=== PATIENT | female | born 1980 | race Caucasian/White ===

== ENCOUNTER 2019-03-13 07:22 | Emergency (ER) | payer SELFPAY ==
[2019-03-13 07:48] LABS: Bilirubin Negative (Negative); Blood, Urine Trace (Negative); Clarity Clear (Clear); Glucose, Urine (Dipstick) Negative (Negative); Leukocyte Small (Negative); Nitrite Negative (Negative); Protein, Urine (Dipstick) 100 mg/dL (Neg-Trace); Urobilinogen 0.2 mg/dL (Less than 2)
[2019-03-13 07:51] LABS: Bacteria/HPF 1+ HPF (None Seen); Squamous Epithelial 0-3 HPF (0-3); Yeast-Budding Rare HPF (None Seen)
[2019-03-13] MEDS ORDERED: Ketorolac Tromethamine 30 MG/ML VIAL ONE (08:08)
[2019-03-13 08:20] LABS: Pregnancy Test - Urine (BHCG) Negative (Negative); Pregu Control Background? CLEAR/WHITE (CLR/WHITE); Pregu Control Bar Appear? YES (CONTROL BAR)
[2019-03-13 08:20] LABS: #Lymphocytes 0.8 thou/uL (1.20-3.40); #Monocytes 0.4 thou/uL (0.11-0.59); #Neutrophils 7.4 thou/uL (1.40-6.50); %Basophils 0.4 % (0.0-1.0); %Eosinophils 0.2 % (0.0-10.0); %Lymphocytes 9.7 % (21.0-51.0); %Monocytes 4.1 % (0.0-10.0); %Neutrophils 85.6 % (42.0-75.0); Mean Corpuscular HGB CONC 31.6 g/dL (32.0-36.0); Mean Corpuscular Hemoglobin 27.1 pg (27.0-31.0); Mean Corpuscular Volume 85.8 fL (78.0-98.0); Mean Platelet Volume 6.3 fL (7.4-10.4); Platelet Count 320 thou/uL (130-400); RBC Distribution Width 13.2 % (11.5-14.5); Red Blood Cell (RBC) Count 4.06 mill/uL (4.20-5.40); White Blood Cell (WBC) Count 8.7 thou/uL (4.8-10.8)
[2019-03-13 08:34] LABS: ALT (SGPT) 90 U/L (8-55); AST (SGOT) 65 U/L (5-34); Albumin 3.9 g/dL (3.5-5.0); Alkaline Phosphatase 190 U/L (40-150); Anion Gap 16 mmol/L (10-20); BUN (Urea Nitrogen) 5 mg/dL (7.0-18.7); Bilirubin, Total 0.4 mg/dL (0.2-1.2); Calc. Creatinine Clearance 0 mL/min (70-130); Calcium 9.4 mg/dL (7.8-10.44); Carbon Dioxide 19 mmol/L (22-29); Chloride 103 mmol/L (98-107); Estimated GFR-MDRD 78; Globulin 5.1 g/dL (2.4-3.5); Glucose 118 mg/dL (70-105); Sodium 135 mmol/L (136-145)
[2019-03-13 08:49] LABS: Potassium 2.8 mmol/L (3.5-5.1)
[2019-03-13] MEDS ORDERED: Cefepime 1 GM VIAL ONE (08:52)
[2019-03-13] MEDS ORDERED: metroNIDAZOLE 500 MG/100 ML BAG ONE (09:13)
[2019-03-13] MEDS ORDERED: Ondansetron PF 4 MG/2 ML Vial ONE (09:45)
[2019-03-13] MEDS ORDERED: Fentanyl 100 MCG/2 ML VIAL ONE (09:45)
--- NOTE | 2019-03-13 12:45 | CT ---
CT ABDOMEN AND PELVIS WITHOUT CONTRAST 03/13/[address] of the abdomen and pelvis was done without oral or IV contrast in this patient with left lo wer quadrant pain. There are two rounded contained fluid collections present in the left adnexal region that push the ut erus slightly towards the right. One is left adnexal and measures 4.8 x 3.1 cm and the other one is p osterior to it in the uterus and measures 4.0 x 2.8 cm. The possibility of abscesses is raised. I do not see any signs of diverticulitis or diverticula. No substantial fluid was seen in the pelvis. An I UD is present in the uterus and appears to be in normal position. The remainder of the scan was unremarkable. The lung bases are clear. The liver, spleen, pancreas, ga llbladder, adrenal glands, kidneys, and abdominal aorta were unremarkable within the limitations of a noncontrast study. There were a few fluid levels in the colon but there is no distention of bowel in any way and no braden-intestinal streaking was seen. No free air of free fluid was present. CT of the pelvis was remarkable just for the left adnexal collections described above. The appendix w as identified and appears normal. No lumbar spine abnormalities were seen. IMPRESSION: Two large rounded space occupying structures in the left adnexal region and posterior to the uterus t hat appear to have central fluid present. Abscesses of pelvic origin are suspected. A pelvic ultraso und as a next step to better characterize them is suggested. Findings discussed with Dr. Redman at 0846 on 03/13/19. POS: HOME
== END 2019-03-13 09:53 | disposition short-term general hospital (02) ==
LOC: BURERS 07:22
DX: N73.9 Female pelvic inflammatory disease, unspecified (principal); E87.6 Hypokalemia; F17.210 Nicotine dependence, cigarettes, uncomplicated
CPT/HCPCS: 36415; 74176; 80053; 81003; 81015; 81025; 85025; 96361; 96365; 96374; 96375; J0692; J1885; J2405; J3010

== ENCOUNTER 2021-02-13 11:28 | Emergency (ER) | payer BC ==
[2021-02-13] MEDS ORDERED: HYDROcodone/Acetaminophen 5/325 mg Tablet ONE (11:39)
[2021-02-13] MEDS ORDERED: Lidocaine 1% (PF) 30 ML VIAL ONE (12:06)
[2021-02-13] MEDS ORDERED: Lidocaine 2% 20 ml MDV ONE (12:06)
[2021-02-13] MEDS ORDERED: Lidocaine 1% PF 5 ML VIAL ONE (12:07)
[2021-02-13] MEDS ORDERED: Lidocaine 2% w/Epinephrine 1:200K 20 ML VIAL ONE (12:07)
== END 2021-02-13 12:59 | disposition home or self-care (01) ==
LOC: BURERS 11:28
DX: S52.501A Unspecified fracture of the lower end of right radius, initial encounter for closed fracture (principal); Z79.01 Long term (current) use of anticoagulants; Z79.899 Other long term (current) drug therapy; W19.XXXA Unspecified fall, initial encounter
CPT/HCPCS: 25605; J2001